=== PATIENT | female | born 1970 | race Two or more races ===

== ENCOUNTER 2017-03-23 06:24 | Observation (INO) | payer OTHER ==
[2017-03-23] VITALS (19 sets, daily range): BP systolic 86–146; BP diastolic 50–88
[~2017-03-23] VITALS: Ht 170.2 cm; Wt 95.8 kg
[2017-03-23 07:16] LABS: HEMATOCRIT 21.6 % (36.0-46.0); MCH 19.1 PG (29.0-34.0); MCHC 28.7 G/DL (30.0-36.0); MCV 66.5 FL (83-99); MEAN PLAT.VOLUME 11.1 uM^3 (9.5-12.4); PLATELET COUNT 199 K/uL (156-360); RBC DIS.WIDTH-CV 17.9 % (11.8-14.6); RBC DIS.WIDTH-SD 42.5 % (39-53); RED BLOOD COUNT 3.25 M/uL (3.80-5.20); WHITE BLOOD COUNT 10.7 K/uL (4.1-10.2)
[2017-03-23 07:44] LABS: ANION GAP 10 MEQ/L (2-14); CHLORIDE 104 MEQ/L (99-109); POTASSIUM 3.7 MEQ/L (3.7-5.4); SAMPLE HEMOLYSIS CHECK 0; SAMPLE ICTERIC CHECK 0; SAMPLE LIPEMIA CHECK 0; SODIUM 133 MEQ/L (136-147)
[2017-03-23 07:49] LABS: GFR ESTIMATE (CALCULATED) 56 mL/min/; GLUCOSE 166 mg/dL (70-99); UREA NITROGEN (BUN) 14 mg/dL (9-23)
[2017-03-23 07:51] LABS: QUANTITATIVE HCG < 4.0 MIU/ML
[2017-03-23 19:48] LABS: HEMATOCRIT 23.5 % (36.0-46.0); MCV 71.6 FL (83-99)
[2017-03-24 00:05] VITALS: BP 137/69
[2017-03-24 00:22] VITALS: BP 134/71
[2017-03-24 04:10] VITALS: BP 121/68
[2017-03-24 06:59] LABS: MCV 72.9 FL (83-99)
[2017-03-24] MEDS ORDERED: PROVERA,CYCRIN10 MG PO (07:05)
[2017-03-24] MEDS ORDERED: CHROMAGEN SOFT1 EACH PO (07:05)
== END 2017-03-24 08:45 | disposition home or self-care (01) ==
LOC: EME 06:24 → EDOF 09:46 → 2EASTP 10:44
PROVIDERS: Emergency Medicine; Obstetrics & Gynecology
PROC: 30233N1 Transfusion of Nonautologous Red Blood Cells into Peripheral Vein, Percutaneous Approach (ICD-10-PCS; principal; 2017-03-23)
DX: N92.0 Excessive and frequent menstruation with regular cycle (principal); D62 Acute posthemorrhagic anemia
CPT/HCPCS: 80048; 84702; 85014; 85018; 85027; 86900; 86901; 86920; 99281; 99285; G0378; J7030; J7040; P9016

== ENCOUNTER 2017-03-31 10:37 | Day surgery (SDC) | payer OTHER ==
[~2017-03-31] VITALS: Ht 170.2 cm; Wt 95.3 kg
[~2017-03-31 10:37] MED LIST: CHROMAGEN SOFT1 EACH PO; PROVERA,CYCRIN10 MG PO
[2017-03-31 11:20] LABS: MCH 22.8 PG (29.0-34.0); MCV 75.9 FL (83-99); MEAN PLAT.VOLUME 10.6 uM^3 (9.5-12.4); PLATELET COUNT 290 K/uL (156-360); RBC DIS.WIDTH-SD 60.3 % (39-53); RED BLOOD COUNT 3.69 M/uL (3.80-5.20)
[2017-03-31 11:28] LABS: INTER. NORMALIZED RATIO 1.1; PROTHROMBIN TIME 11.5 (9.2-11.2); PTT 22.9 (25-32)
[2017-03-31 11:38] LABS: QUANTITATIVE HCG < 4.0 MIU/ML
[2017-03-31 12:00] VITALS: BP 160/74
[2017-03-31 12:33] LABS: Estimated Average Glucose 97 mg/dL (70-123)
[2017-03-31 16:40] LABS: CHLORIDE 108 mEq/L (99-109); POTASSIUM 4.1 mEq/L (3.7-5.4); SODIUM 137 mEq/L (136-147)
[2017-03-31 16:42] LABS: GLUCOSE 114 mg/dL (70-99)
[2017-03-31 16:46] LABS: GFR ESTIMATE (CALCULATED) > 59 mL/min/
[2017-03-31 16:47] LABS: UREA NITROGEN (BUN) 12 mg/dL (9-23)
[2017-03-31 17:03] LABS: ANION GAP 10 MEQ/L (2-14)
[2017-03-31 17:28] VITALS: BP 141/66
[2017-03-31 18:23] VITALS: BP 160/70
== END 2017-03-31 19:11 | disposition home or self-care (01) ==
LOC: SDC 10:37
PROVIDERS: Obstetrics & Gynecology
DX: N84.0 Polyp of corpus uteri (principal); N84.1 Polyp of cervix uteri; N92.0 Excessive and frequent menstruation with regular cycle; D50.9 Iron deficiency anemia, unspecified; E66.9 Obesity, unspecified; Z83.3 Family history of diabetes mellitus; Z82.49 Family history of ischemic heart disease and other diseases of the circulatory system
CPT/HCPCS: 80048; 83036; 84702; 85027; 85610; 85730; 86900; 86901; 86920; 88305; J0330; J0690; J1100; J1170; J2250; J2405; J3010; P9016